=== PATIENT | female | born 1985 | race American Indian/Alaskan Native ===

== ENCOUNTER 2020-11-13 21:15 | Emergency (ER) | payer OTHER ==
[~2020-11-13] VITALS: Ht 175.3 cm; Wt 149.7 kg
[~2020-11-13 21:15] MED LIST: ABILIFY10 MG PO; ADDERALL 10 MG10 MG PO; ALPRAZOLAM0.5 MG PO; AMBIEN10 MG PO; CIPRO500 MG PO; ZOLOFT100 MG PO
--- OUTSIDE RECORDS SUMMARY | 2020-11-13 21:18 | XMS ---
PreManage Notification: IRENE ROBERTS Security Aerial Photogrammetrist Events 1 event(s) in the past 18 months Most recent security events: Elopement at [facility] 11/12/2020 15:04 - Other Details: PATIENT LWBS. CRITERIA MET - PDM - [facility] - 2 Visits in 30 Days CARE PROVIDERS BECKIE HAWK High Risk Case Manager Current PHONE: [phone] [facility] 11/13/2020-[facility] PHONE: [phone] Aileen has no Care Guidelines for this patient. Care History Medical/Surgical 11/13/2020 [facility] - PATIENT IS DEBBIE [place], \T\middot;\T\nbsp; PLEASE REFER PATIENT TO [facility] FOR NON EMERGENT MEDICAL NEEDS. \T\middot;\T\nbsp; [facility] CAN SEE PATIENTS SAME DAY FOR APTS IF PATIENT CALLS FIRST THING IN THE MORNING. E.D. VISIT COUNT (12 MO.) [address] [facility] TOTAL 2 NOTE: Visits indicate total known visits. ED/UCC VISIT TRACKING (12 MO.) 11/13/2020 21:16 [facility] [place] TYPE: Emergency COMPLAINT: - ABDOMINAL PAIN, VOMITTING 11/12/2020 15:04 [facility] [place] TYPE: Emergency COMPLAINT: - ABD PAIN INPATIENT VISIT TRACKING (12 MO.) No inpatient visits to display in this time frame [email or web address]
[2020-11-13] MEDS ORDERED: TRAZODONE HCL50 MG PO (21:44)
[2020-11-13] MEDS ORDERED: OMEPRAZOLE20 MG PO (21:46)
[2020-11-13] MEDS ORDERED: VENTOLIN HFA18 GM INH (21:47)
== END 2020-11-14 01:23 | disposition home or self-care (01) ==
LOC: ED 21:15
DX: R10.30 Lower abdominal pain, unspecified (principal); R10.10 Upper abdominal pain, unspecified; J45.909 Unspecified asthma, uncomplicated; Z88.0 Allergy status to penicillin; Z88.8 Allergy status to other drugs, medicaments and biological substances; Z79.899 Other long term (current) drug therapy
CPT/HCPCS: 74177; 80053; 81001; 83690; 84703; 85025; 96361; 96375; 96376; 99284-25; C9113; J1170; J2405; J7030; Q9967

== ENCOUNTER 2020-12-09 19:39 | Emergency (ER) | payer OTHER ==
[~2020-12-09] VITALS: Ht 175.3 cm; Wt 147.0 kg
[~2020-12-09 19:39] MED LIST changes: +OMEPRAZOLE20 MG PO; +TRAZODONE HCL50 MG PO; +VENTOLIN HFA18 GM INH
--- OUTSIDE RECORDS SUMMARY | 2020-12-09 19:44 | XMS ---
PreManage Notification: IRENE ROBERTS Security Retail And Restaurant Events 1 event(s) in the past 18 months Most recent security events: Elopement at [facility] 11/12/2020 15:04 - Other Details: PATIENT LWBS. CRITERIA MET - [facility] - 2 Visits in 30 Days CARE PROVIDERS BECKIE HAWK Bushwalking Guide Current PHONE: [phone] [facility] 11/13/2020-[facility] PHONE: [phone] Aileen has no Care Guidelines for this patient. Care History Medical/Surgical 11/13/2020 [facility] - PATIENT IS DEBBIE ELIGIBLE, \T\middot;\T\nbsp; PLEASE REFER PATIENT TO [facility] FOR NON EMERGENT MEDICAL NEEDS. \T\middot;\T\nbsp; [facility] CAN SEE PATIENTS SAME DAY FOR APTS IF PATIENT CALLS FIRST THING IN THE MORNING. E.D. VISIT COUNT (12 MO.) [address] [facility] TOTAL 3 NOTE: Visits indicate total known visits. ED/UCC VISIT TRACKING (12 MO.) 12/09/2020 19:39 [facility] [place] TYPE: Emergency COMPLAINT: - LT EAR PAIN/COUGH 11/13/2020 21:16 [facility] [place] TYPE: Emergency COMPLAINT: - ABDOMINAL PAIN DIAGNOSES: - Upper abdominal pain, unspecified - Other detention (current) drug therapy - Lower abdominal pain, unspecified - Allergy status to other drugs, medicaments and biological substances - Unspecified asthma, uncomplicated - Allergy status to penicillin 11/12/2020 15:[address] [facility] [address] [facility] [place] TYPE: Emergency COMPLAINT: - ABD PAIN INPATIENT VISIT TRACKING (12 MO.) No inpatient visits to display in this time frame [email or web address]
[2020-12-09] MEDS ORDERED: NEOMYCIN-POLYMY10 M1 OTIC (20:08)
== END 2020-12-09 20:23 | disposition home or self-care (01) ==
LOC: ED 19:39
DX: H60.92 Unspecified otitis externa, left ear (principal); J45.909 Unspecified asthma, uncomplicated; Z88.0 Allergy status to penicillin; Z88.1 Allergy status to other antibiotic agents; Z79.899 Other long term (current) drug therapy
CPT/HCPCS: 99282

== ENCOUNTER 2021-03-15 06:08 | Emergency (ER) | payer OTHER ==
[~2021-03-15] VITALS: Ht 170.2 cm; Wt 136.1 kg
[~2021-03-15 06:08] MED LIST changes: +NEOMYCIN-POLYMY10 M1 OTIC
--- OUTSIDE RECORDS SUMMARY | 2021-03-15 06:10 | XMS ---
PreManage Notification: IRENE ROBERTS Security Vocational Rehab Consultant Events 1 event(s) in the past 18 months Most recent security events: Elopement at [facility] 11/12/2020 15:04 - Other Details: PATIENT LWBS. CRITERIA MET - PDMP - [facility] - Has Care Guidelines CARE PROVIDERS BECKIE HAWK Digital Content Coordinator Current PHONE: [phone] [facility] 11/13/2020-[facility] PHONE: [phone] Aileen has no Care Guidelines for this patient. Care History Medical/Surgical 12/11/2020 [facility] - CHW CONTACTED VOCATIONAL CHILDCARE TEACHER [place] AT [facility]- PATIENT HAS A FOLLOW UP APT TODAY WITH PCP. - PATIENT HAS ALCOHOL AND DRUG COUNSELOR AT [facility] - PATIENT CURRENTLY WORKING WITH A PSYCHIATRIST AT [facility]. - PATIENT HAS BEEN REQUESTING PAIN MEDICATION FROM PCP- 11/13/2020 [facility] - PATIENT IS [facility] ELIGIBLE, \T\middot;\T\nbsp; PLEASE REFER PATIENT TO [facility] FOR NON EMERGENT MEDICAL NEEDS. \T\middot;\T\nbsp; [facility] CAN SEE PATIENTS SAME DAY FOR APTS IF PATIENT CALLS FIRST THING IN THE MORNING. Matthew VISIT COUNT (12 MO.) 4 [facility] TOTAL 4 NOTE: Visits indicate total known visits. ED/UCC VISIT TRACKING (12 MO.) 03/15/2021 06:09 [facility] [place] TYPE: Emergency COMPLAINT: - SORE THROAT 12/09/2020 19:39 [facility] [place] TYPE: Emergency COMPLAINT: - LT EAR PAIN/COUGH DIAGNOSES: - Otalgia, left ear - Other mold finisher (current) drug therapy - Allergy status to other antibiotic agents - Unspecified otitis externa, left ear - Allergy status to penicillin - Unspecified asthma, uncomplicated 11/13/2020 21:16 [facility] [place] TYPE: Emergency COMPLAINT: - ABDOMINAL PAIN DIAGNOSES: - Upper abdominal pain, unspecified - Other care home (current) drug therapy - Lower abdominal pain, unspecified - Allergy status to other drugs, medicaments and biological substances - Unspecified asthma, uncomplicated - Allergy status to penicillin 11/12/2020 15:04 [facility] [place] TYPE: Emergency COMPLAINT: - ABD PAIN INPATIENT VISIT TRACKING (12 MO.) No inpatient visits to display in this time frame [email or web address]
[2021-03-15] MEDS ORDERED: CYCLOBENZAPRINE10 MG PO (06:28)
[2021-03-15] MEDS ORDERED: SYMBICORT 16010.2 GM INH (06:29)
[2021-03-15] MEDS ORDERED: ALPRAZOLAM0.5 MG PO (06:29)
[2021-03-15] MEDS ORDERED: FLUTICASONE PRO16 GM NAS (06:30)
[2021-03-15] MEDS ORDERED: ZITHROMAX250 MG PO (08:10)
== END 2021-03-15 08:24 | disposition home or self-care (01) ==
LOC: ED 06:08
DX: J02.0 Streptococcal pharyngitis (principal); Z20.822 Contact with and (suspected) exposure to COVID-19; J45.909 Unspecified asthma, uncomplicated; Z88.0 Allergy status to penicillin; Z88.8 Allergy status to other drugs, medicaments and biological substances; Z79.899 Other long term (current) drug therapy
CPT/HCPCS: 99283; C9803; U0003

== ENCOUNTER 2022-02-04 14:11 | Emergency (ER) | payer OTHER ==
[~2022-02-04] VITALS: Ht 170.2 cm; Wt 117.9 kg
[~2022-02-04 14:11] MED LIST changes: +CYCLOBENZAPRINE10 MG PO; +FLUTICASONE PRO16 GM NAS; +SYMBICORT 16010.2 GM INH; +ZITHROMAX250 MG PO
--- OUTSIDE RECORDS SUMMARY | 2022-02-04 14:14 | XMS ---
PreManage Notification: IRENE ROBERTS Security Panel Edge Sealer Events 2 event(s) in the past 18 months Most recent security events: Elopement at [facility] 09/03/2021 14:53 - Other Details: PATIENT LWBS Elopement at [facility] 11/12/2020 15:04 - Other Details: PATIENT LWBS. CRITERIA MET - [facility] - Has Care Guidelines - PDMP CARE PROVIDERS BECKIE HAWK Cath Laboratory Technician Current PHONE: Unknown [facility] 11/13/2020-[facility] PHONE: [phone] Alieen has no Care Guidelines for this patient. Care History Medical/Surgical 12/11/2020 [facility] - CHW CONTACTED RED HAT OPEN STACK ADMINISTRATOR [place] AT [facility]- PATIENT HAS A FOLLOW UP APT TODAY WITH PCP. - PATIENT HAS ALCOHOL AND DRUG COUNSELOR AT [facility]- [facility] - PATIENT CURRENTLY WORKING WITH A PSYCHIATRIST AT [facility]. - PATIENT HAS BEEN REQUESTING PAIN MEDICATION FROM PCP- 11/13/2020 [facility] - PATIENT IS DEBBIE ELIGIBLE, \T\middot;\T\nbsp; PLEASE REFER PATIENT TO [facility] FOR NON EMERGENT MEDICAL NEEDS. \T\middot;\T\nbsp; [facility] CAN SEE PATIENTS SAME DAY FOR APTS IF PATIENT CALLS FIRST THING IN THE MORNING. E.D. VISIT COUNT (12 MO.) 3 [facility] TOTAL 3 NOTE: Visits indicate total known visits. ED/UCC VISIT TRACKING (12 MO.) 02/04/2022 14:12 [facility] [place] TYPE: Emergency COMPLAINT: - ABD PAIN, NAUSEA 09/03/2021 14:53 [facility] [place] TYPE: Emergency COMPLAINT: - WOUND ON FOREHEAD 03/15/2021 06:09 [facility] [place] TYPE: Emergency COMPLAINT: - SORE THROAT DIAGNOSES: - Allergy status to penicillin - Unspecified asthma, uncomplicated - Acute pharyngitis, unspecified - Streptococcal pharyngitis - Other fci (current) drug therapy - Allergy status to other drugs, medicaments and biological substances INPATIENT VISIT TRACKING (12 MO.) No inpatient visits to display in this time frame [email or web address]
[2022-02-04] MEDS ORDERED: PANTOPRAZOLE SO40 MG PO (18:32)
[2022-02-04] MEDS ORDERED: CARAFATE1 GM PO (18:32)
== END 2022-02-04 18:47 | disposition home or self-care (01) ==
LOC: ED 14:11
DX: K27.9 Peptic ulcer, site unspecified, unspecified as acute or chronic, without hemorrhage or perforation (principal); J45.909 Unspecified asthma, uncomplicated; Z88.8 Allergy status to other drugs, medicaments and biological substances; Z88.0 Allergy status to penicillin; Z79.899 Other long term (current) drug therapy
CPT/HCPCS: 36415; 74177; 80053; 81001; 83690; 84703; 85025; 87088; 99284-25; J2405; J7030

== ENCOUNTER 2022-04-03 16:28 | Emergency (ER) | payer OTHER ==
[~2022-04-03] VITALS: Ht 170.2 cm; Wt 119.8 kg
[~2022-04-03 16:28] MED LIST changes: +CARAFATE1 GM PO; +PANTOPRAZOLE SO40 MG PO
--- OUTSIDE RECORDS SUMMARY | 2022-04-03 16:30 | XMS ---
PreManage Notification: IRENE ROBERTS Security Property Management Accountant Events 2 event(s) in the past 18 months Most recent security events: Elopement at [facility] 09/03/2021 14:53 - Other Details: PATIENT LWBS Elopement at [facility] 11/12/2020 15:04 - Other Details: PATIENT LWBS. CRITERIA MET - [facility] - Has Care Guidelines - PDMP CARE PROVIDERS BECKIE HAWK Regeneration Operator Current PHONE: Unknown [facility] 11/13/2020-[facility] PHONE: [phone] Aileen has no Care Guidelines for this patient. Care History Medical/Surgical 12/11/2020 [facility] - CHW CONTACTED GLASSWARE FINISHER [place] AT [facility]- PATIENT HAS A FOLLOW UP APT TODAY WITH PCP. - PATIENT HAS ALCOHOL AND DRUG COUNSELOR AT [facility]- [facility] - PATIENT CURRENTLY WORKING WITH A PSYCHIATRIST AT [facility]. - PATIENT HAS BEEN REQUESTING PAIN MEDICATION FROM PCP- 11/13/2020 [facility] - PATIENT IS DEBBIE ELIGIBLE, \T\middot;\T\nbsp; PLEASE REFER PATIENT TO [facility] FOR NON EMERGENT MEDICAL NEEDS. \T\middot;\T\nbsp; [facility] CAN SEE PATIENTS SAME DAY FOR APTS IF PATIENT CALLS FIRST THING IN THE MORNING. E.D. VISIT COUNT (12 MO.) 3 [facility] TOTAL 3 NOTE: Visits indicate total known visits. ED/UCC VISIT TRACKING (12 MO.) 04[facility]03[facility]2022 [facility]:28 [facility] COMPLAINT: - STOMACH ISSUES 02/04/2022 14:12 [facility] [place] TYPE: Emergency COMPLAINT: - ABD PAIN, NAUSEA DIAGNOSES: - Allergy status to penicillin - Peptic ulcer, site unspecified, unspecified as acute or chronic, without hemorrhage or perforation - Other intermodal truck driver (current) drug therapy - Unspecified asthma, uncomplicated - Allergy status to other drugs, medicaments and biological substances - Nausea with vomiting, unspecified 09/03/2021 14:53 [facility] [place] TYPE: Emergency COMPLAINT: - WOUND ON FOREHEAD INPATIENT VISIT TRACKING (12 MO.) No inpatient visits to display in this time frame [email or web address]
[2022-04-03] MEDS ORDERED: ONDANSETRON ODT8 MG PO (16:52)
[2022-04-03] MEDS ORDERED: PROMETHAZINE HC25 M1 PO (19:08)
[2022-04-03] MEDS ORDERED: HYDROCODON-ACE1 EA10 PO (19:08)
== END 2022-04-03 19:28 | disposition home or self-care (01) ==
LOC: ED 16:28
DX: R10.10 Upper abdominal pain, unspecified (principal); R11.2 Nausea with vomiting, unspecified; J45.909 Unspecified asthma, uncomplicated; Z88.0 Allergy status to penicillin; Z88.8 Allergy status to other drugs, medicaments and biological substances; Z79.899 Other long term (current) drug therapy
CPT/HCPCS: 36415; 80053; 83690; 84703; 85025; 96374; 96375; 99284-25; C9113; J1170; J2550; J7030

== ENCOUNTER 2022-04-05 20:43 | Emergency (ER) | payer OTHER ==
[~2022-04-05] VITALS: Ht 170.2 cm; Wt 119.8 kg
[~2022-04-05 20:43] MED LIST changes: +HYDROCODON-ACE1 EA10 PO; +ONDANSETRON ODT8 MG PO; +PROMETHAZINE HC25 M1 PO
--- OUTSIDE RECORDS SUMMARY | 2022-04-05 20:46 | XMS ---
PreManage Notification: IRENE ROBERTS Security Oil Refinery Operator Events 2 event(s) in the past 18 months Most recent security events: Elopement at [facility] 09/03/2021 14:53 - Other Details: PATIENT LWBS Elopement at [facility] 11/12/2020 15:04 - Other Details: PATIENT LWBS. CRITERIA MET - PDMP - [facility] - 2 Visits in 30 Days - [facility] - Has Care Guidelines CARE PROVIDERS BECKIE HAWK Current PHONE: Unknown [facility] 11/13/[facility] PHONE: [phone] Aileen has no Care Guidelines for this patient. Care History Medical/Surgical 12/11/2020 [facility] - CHW CONTACTED IS ANALYST MI AT [facility]- PATIENT HAS A FOLLOW UP APT TODAY WITH PCP. - PATIENT HAS ALCOHOL AND DRUG COUNSELOR AT [facility]- [facility] - PATIENT CURRENTLY WORKING WITH A PSYCHIATRIST AT [facility]. - PATIENT HAS BEEN REQUESTING PAIN MEDICATION FROM PCP- 11/13/2020 [facility] - PATIENT IS DEBBIE ELIGIBLE, \T\middot;\T\nbsp; PLEASE REFER PATIENT TO [facility] FOR NON EMERGENT MEDICAL NEEDS. \T\middot;\T\nbsp; [facility] CAN SEE PATIENTS SAME DAY FOR APTS IF PATIENT CALLS FIRST THING IN THE MORNING. E.D. VISIT COUNT (12 MO.) [facility] NOTE: Visits indicate total known visits. ED/UCC VISIT TRACKING (12 MO.) [facility]22 [facility] COMPLAINT: - ABDOMINAL PAIN 04/03/2022 16:28 [facility] [place] TYPE: Emergency COMPLAINT: - STOMACH ISSUES 02/04/2022 14:12 [facility] [place] TYPE: Emergency COMPLAINT: - ABD PAIN, NAUSEA DIAGNOSES: - Other terminal gauger (current) drug therapy - Unspecified asthma, uncomplicated - Allergy status to other drugs, medicaments and biological substances - Nausea with vomiting, unspecified - Allergy status to penicillin - Peptic ulcer, site unspecified, unspecified as acute or chronic, without hemorrhage or perforation 09/03/2021 14:53 [facility] [place] TYPE: Emergency COMPLAINT: - WOUND ON FOREHEAD INPATIENT VISIT TRACKING (12 MO.) No inpatient visits to display in this time frame [email or web address]
== END 2022-04-05 21:45 | disposition home or self-care (01) ==
LOC: ED 20:43
DX: K21.9 Gastro-esophageal reflux disease without esophagitis (principal); Z88.0 Allergy status to penicillin; Z88.8 Allergy status to other drugs, medicaments and biological substances; Z79.899 Other long term (current) drug therapy
CPT/HCPCS: 99284; A9270

== ENCOUNTER 2022-04-08 12:54 | Emergency (ER) | payer OTHER ==
[~2022-04-08] VITALS: Ht 170.2 cm; Wt 119.8 kg
--- OUTSIDE RECORDS SUMMARY | 2022-04-08 12:57 | XMS ---
PreManage Notification: IRENE ROBERTS Security Process Description Writer Events 2 event(s) in the past 18 months Most recent security events: Elopement at [facility] 09/03/2021 14:53 - Other Details: PATIENT LWBS Elopement at [facility] 11/12/2020 15:04 - Other Details: PATIENT LWBS. CRITERIA MET - [facility] - Has Care Guidelines - PDMP - [facility] - 2 Visits in 30 Days CARE PROVIDERS BECKIE HAWK Current PHONE: Unknown [facility] 11/13/2020-[facility] PHONE: [phone] Aileen has no Care Guidelines for this patient. Care History Medical/Surgical 12/11/2020 [facility] - CHW CONTACTED LEAN ENGINEER [place] AT [facility]- PATIENT HAS A FOLLOW UP APT TODAY WITH PCP. - PATIENT HAS ALCOHOL AND DRUG COUNSELOR AT [facility] - PATIENT CURRENTLY WORKING WITH A PSYCHIATRIST AT [facility]. - PATIENT HAS BEEN REQUESTING PAIN MEDICATION FROM PCP- 11/13/2020 [facility] - PATIENT IS DEBBIE ELIGIBLE, \T\middot;\T\nbsp; PLEASE REFER PATIENT TO [facility] FOR NON EMERGENT MEDICAL NEEDS. \T\middot;\T\nbsp; [facility] CAN SEE PATIENTS SAME DAY FOR APTS IF PATIENT CALLS FIRST THING IN THE MORNING. E.D. VISIT COUNT (12 MO.) [facility] NOTE: Visits indicate total known visits. ED/UCC VISIT TRACKING (12 MO.) 04[facility]08/2022 12:54 [facility] COMPLAINT: - ABD PAIN, N/V 04/05/2022 20:44 [facility] [place] TYPE: Emergency COMPLAINT: - ABDOMINAL PAIN DIAGNOSES: - Allergy status to penicillin - Allergy status to other drugs, medicaments and biological substances - Gastro-esophageal reflux disease without esophagitis - Left upper quadrant pain - Other vermin exterminator (current) drug therapy 04/03/2022 16:28 [facility] [place] TYPE: Emergency COMPLAINT: - STOMACH ISSUES DIAGNOSES: - Nausea with vomiting, unspecified - Allergy status to penicillin - Allergy status to other drugs, medicaments and biological substances - Upper abdominal pain, unspecified - Unspecified asthma, uncomplicated - Other residential (current) drug therapy 02/04/2022 14:12 [facility] [place] TYPE: Emergency COMPLAINT: - ABD PAIN, NAUSEA DIAGNOSES: - Unspecified asthma, uncomplicated - Allergy status to other drugs, medicaments and biological substances - Nausea with vomiting, unspecified - Allergy status to penicillin - Peptic ulcer, site unspecified, unspecified as acute or chronic, without hemorrhage or perforation - Other vermin exterminator (current) drug therapy 09/03/2021 14:[address] [facility] [facility] [place] TYPE: Emergency COMPLAINT: - WOUND ON FOREHEAD INPATIENT VISIT TRACKING (12 MO.) No inpatient visits to display in this time frame [email or web address]
== END 2022-04-08 16:18 | disposition home or self-care (01) ==
LOC: ED 12:54
DX: K29.70 Gastritis, unspecified, without bleeding (principal); J45.909 Unspecified asthma, uncomplicated; Z88.8 Allergy status to other drugs, medicaments and biological substances; Z88.0 Allergy status to penicillin; Z79.899 Other long term (current) drug therapy
CPT/HCPCS: 99284

== ENCOUNTER 2022-04-25 15:10 | Emergency (ER) | payer OTHER ==
[~2022-04-25] VITALS: Ht 170.2 cm; Wt 119.8 kg
--- OUTSIDE RECORDS SUMMARY | 2022-04-25 15:12 | XMS ---
PreManage Notification: IRENE ROBERTS Security Trash Hauler Events 2 event(s) in the past 18 months Most recent security events: Elopement at [facility] 09/03/2021 14:53 - Other Details: PATIENT LWBS Elopement at [facility] 11/12/2020 15:04 - Other Details: PATIENT LWBS. CRITERIA MET - [facility] - Has Care Guidelines - PDMP - [facility] - 2 Visits in 30 Days - 6 ED Visits in 6 Months CARE PROVIDERS BECKIE HAWK Current PHONE: Unknown [facility] 11/13/2020-[facility] PHONE: [phone] Aileen has no Care Guidelines for this patient. Care History Medical/Surgical 12/11/2020 [facility] - CHW CONTACTED PRESS DEPARTMENT MANAGER [place] AT [facility]- PATIENT HAS A FOLLOW UP APT TODAY WITH PCP. - PATIENT HAS ALCOHOL AND DRUG COUNSELOR AT [facility]- [facility] - PATIENT CURRENTLY WORKING WITH A PSYCHIATRIST AT [facility]. - PATIENT HAS BEEN REQUESTING PAIN MEDICATION FROM PCP- 11/13/2020 [facility] - PATIENT IS [facility] ELIGIBLE, \T\middot;\T\nbsp; PLEASE REFER PATIENT TO [facility] FOR NON EMERGENT MEDICAL NEEDS. \T\middot;\T\nbsp; [facility] CAN SEE PATIENTS SAME DAY FOR APTS IF PATIENT CALLS FIRST THING IN THE MORNING. E.D. VISIT COUNT (12 MO.) 7 [facility] TOTAL 7 NOTE: Visits indicate total known visits. ED/UCC VISIT TRACKING (12 MO.) 04/25/2022 15:10 [facility] COMPLAINT: - FOOT PAIN 04/23/2022 21:02 [facility] [place] TYPE: Emergency COMPLAINT: - L FOOT INJ 04/08/2022 12:54 [facility] [place] TYPE: Emergency COMPLAINT: - ABD PAIN, N/V DIAGNOSES: - Allergy status to other drugs, medicaments and biological substances - Allergy status to penicillin - Other technician terminal and repeater (current) drug therapy - Gastritis, unspecified, without bleeding - Unspecified asthma, uncomplicated - Epigastric pain 04/05/2022 20:44 [facility] [place] TYPE: Emergency COMPLAINT: - ABDOMINAL PAIN DIAGNOSES: - Allergy status to penicillin - Allergy status to other drugs, medicaments and biological substances - Gastro-esophageal reflux disease without esophagitis - Left upper quadrant pain - Other mcfp (current) drug therapy 04/03/2022 16:28 [facility] [place] TYPE: Emergency COMPLAINT: - STOMACH ISSUES DIAGNOSES: - Allergy status to penicillin - Allergy status to other drugs, medicaments and biological substances - Upper abdominal pain, unspecified - Unspecified asthma, uncomplicated - Other technician terminal and repeater (current) drug therapy - Nausea with vomiting, unspecified 02/04/2022 14:12 [facility] [place] TYPE: Emergency COMPLAINT: - ABD PAIN, NAUSEA DIAGNOSES: - Allergy status to other drugs, medicaments and biological substances - Nausea with vomiting, unspecified - Allergy status to penicillin - Peptic ulcer, site unspecified, unspecified as acute or chronic, without hemorrhage or perforation - Other technician terminal and repeater (current) drug therapy - Unspecified asthma, uncomplicated 09/03/2021 14:53 [facility] [place] TYPE: Emergency COMPLAINT: - WOUND ON FOREHEAD INPATIENT VISIT TRACKING (12 MO.) No inpatient visits to display in this time frame [email or web address]
[2022-04-25] MEDS ORDERED: HYDROCODON-ACE1 EA10 PO (15:56)
== END 2022-04-25 16:32 | disposition home or self-care (01) ==
LOC: ED 15:10
DX: S92.355A Nondisplaced fracture of fifth metatarsal bone, left foot, initial encounter for closed fracture (principal); J45.909 Unspecified asthma, uncomplicated; X50.9XXA Other and unspecified overexertion or strenuous movements or postures, initial encounter; Z88.8 Allergy status to other drugs, medicaments and biological substances; Z88.0 Allergy status to penicillin; Z79.899 Other long term (current) drug therapy
CPT/HCPCS: 73630; 99283-25

== ENCOUNTER 2023-09-22 07:33 | Emergency (ER) | payer OTHER ==
[~2023-09-22] VITALS: Ht 170.2 cm; Wt 130.2 kg
[~2023-09-22 07:33] MED LIST changes: +AMPHETAMINE SAL10 MG PO; +ATIVAN1 MG PO; +DOCUSATE SODIU100 MG PO; +ETONOGESTREL-E1 EACH PV; +MILK OF MA400 MG/5 M PO; +MOTRIN IB200 MG PO; +ONDANSETRON ODT4 MG SL; +TYLENOL EXTRA500 MG PO; +VISTARIL25 MG PO; +XANAX0.5 MG PO
[2023-09-22] MEDS ORDERED: PSEUDOEPHEDRINE HCL 30 MG TAB PO ONE (07:45)
[2023-09-22] MEDS ORDERED: ACETAMINOPHEN 500 MG TAB PO ONE (07:45)
[2023-09-22 08:27] LABS: INFLUENZA B NAA NEGATIVE (NEGATIVE); RESPIRATORY SYNCYTIAL VIR NAA NEGATIVE (NEGATIVE)
[2023-09-22] MEDS ORDERED: TAMIFLU75 MG PO (08:32)
[2023-09-22] MEDS ORDERED: CYCLOBENZAPRINE10 MG PO (08:33)
[2023-09-22] MEDS ORDERED: NASAL DECONGEST30 MG PO (08:33)
[2023-09-22 08:42] VITALS: BP 101/59
== END 2023-09-22 08:42 | disposition home or self-care (01) ==
LOC: ED 07:33
PROVIDERS: Family Medicine
DX: J10.1 Influenza due to other identified influenza virus with other respiratory manifestations (principal); J45.909 Unspecified asthma, uncomplicated; Z79.899 Other long term (current) drug therapy; Z88.0 Allergy status to penicillin; Z88.6 Allergy status to analgesic agent; Z88.8 Allergy status to other drugs, medicaments and biological substances
CPT/HCPCS: 71045; 87502; 99284-25; A9270; U0002